=== PATIENT | male | born 1945 | race Caucasian/White ===

== ENCOUNTER 2019-11-28 15:49 | Outpatient (CLI) | payer OTHER | END 2019-11-28 23:59 | disposition home or self-care (01) | LOC: CVU 15:49 | PROVIDERS: ATTEND Orthopaedic Surgery | DX: I35.1 Nonrheumatic aortic (valve) insufficiency (principal); I25.10 Atherosclerotic heart disease of native coronary artery without angina pectoris | CPT/HCPCS: 93306 ==